=== PATIENT | male | born 1955 | race Caucasian/White ===

== ENCOUNTER → 2016-04-17 | Outpatient (CLI) | payer BC, OTHER ==
[~2016-04-17] VITALS: Ht 177.8 cm; Wt 102.1 kg
[~2016-04-17] MED LIST: ASPI1TAB PO; METO-346 PO; NS 1,000 ML IV SCH; PROPOFOL 200 MG/20 ML VIAL As Ordered ONE; SIMV40TA2 PO
--- NOTE | 2016-04-17 10:07 | ROOR ---
Patient Name: Sapna Mares Procedure Date: 04/17/2016 9:42 AM Date of : 1955 Age: 60 Room: [facility] Gender: Male Note Status: Finalized Procedure: Colonoscopy Indications: Screening for colorectal malignant neoplasm Providers: Forrest Sanders Jr, MD Referring MD: Martina ARMENDARIZ DO Requestem Provider: Medicines: Propofol per Anesthesia Complications: No immediate complications. Procedure: Pre-Anesthesia Assessment: - Prior to the procedure, a History and Physical was performed, and patient medications and allergies were reviewed. The patient is competent. The risks and benefits of the procedure and the sedation options and risks were discussed with the patient. All questions were answered and informed consent was obtained. Patient identification and proposed procedure were verified by the physician and the nurse in the pre-procedure area and in the procedure room. Mental Status Examination: alert and oriented. Airway Examination: normal oropharyngeal airway and neck mobility. Respiratory Examination: clear to auscultation. CV Examination: normal. ASA Grade Assessment: II - A patient with mild systemic disease. After reviewing the risks and benefits, the patient was deemed in satisfactory condition to undergo the procedure. The anesthesia plan was to use moderate sedation / analgesia (conscious sedation). Immediately prior to administration of medications, the patient was re-assessed for adequacy to receive sedatives. The heart rate, respiratory rate, oxygen saturations, blood pressure, adequacy of pulmonary ventilation, and response to care were monitored throughout the procedure. The physical status of the patient was re-assessed after the procedure. The Colonoscope was introduced through the anus and advanced to the cecum, identified by appendiceal orifice and ileocecal valve. The Colonoscope was introduced through the and advanced to. The patient tolerated the procedure well. The quality of the bowel preparation was adequate and good. Findings: The perianal and digital rectal examinations were normal. Pertinent negatives include normal sphincter tone, no palpable rectal lesions and no anal lesion or abnormality was detected. Multiple small and large-mouthed diverticula were found in the sigmoid colon. A medium polyp was found in the recto-sigmoid colon. The polyp was pedunculated. The polyp was removed with a hot snare. Resection and retrieval were complete. The descending colon, transverse colon, ascending colon, cecum, appendiceal orifice and ileocecal valve appeared normal. Impression: - Diverticulosis in the sigmoid colon. - One medium polyp at the recto-sigmoid colon, removed with a hot snare. Resected and retrieved. Recommendation: - Discharge patient to home (ambulatory). - Repeat colonoscopy in 3 years for surveillance. Forrest Sanders MD Forrest Sanders Jr, MD 04/17/2016 10:07:19 AM This report has been signed electronically. Number of Addenda: 0 Note Initiated On: 04/17/2016 9:42 AM Estimated Blood Loss: Estimated blood loss: none.
[2016-04-17 10:25] VITALS: BP 126/86
== END | disposition home or self-care (01) ==
LOC: M OPP 08:47
PROVIDERS: ATTEND Surgery
DX: Z12.11 Encounter for screening for malignant neoplasm of colon (principal); K57.30 Diverticulosis of large intestine without perforation or abscess without bleeding; D12.7 Benign neoplasm of rectosigmoid junction; I25.10 Atherosclerotic heart disease of native coronary artery without angina pectoris; E78.00 Pure hypercholesterolemia, unspecified; E66.9 Obesity, unspecified; Z95.5 Presence of coronary angioplasty implant and graft; F17.200 Nicotine dependence, unspecified, uncomplicated; F17.228 Nicotine dependence, chewing tobacco, with other nicotine-induced disorders; Z79.899 Other long term (current) drug therapy; Z79.82 Long term (current) use of aspirin

== ENCOUNTER → 2016-05-16 | Outpatient (CLI) | payer BC, OTHER ==
[~2016-05-16] MED LIST changes: +ISOVUE-370 76% 100ML VIAL (Q9967) As Ordered ONE; -NS 1,000 ML IV SCH; -PROPOFOL 200 MG/20 ML VIAL As Ordered ONE
--- NOTE | 2016-05-16 09:51 | REP ---
CT MAXILLOFACIAL WITH CONTRAST: 05/16/2016. Clinical history: Right-sided nasopharyngeal mass. Technique. The patient received a bolus of 75 ml of Isovue with scanning through the maxillofacial soft tissues with coronal and sagittal reconstructions. Findings: There is bilateral maxillary sinus mucosal thickening with mucous retention cysts suggested posteriorly and inferiorly on the left. Frontal sinuses were clear. Ethmoids show a few areas of mucosal thickening. Sphenoids are clear. The septum is deviated towards the left. Arising from the right nasal passage is a soft tissue mass abutting the right side of the posterior septum. It has a length of at least 4.3 cm. It has a transverse diameter in the nasopharyngeal airway of 2.2 cm and a maximum vertical diameter of 2.2 cm. Nasal cavity and nasopharyngeal airway were otherwise unremarkable. No bony destructive changes. The middle and inferior turbinates were intact bilaterally and unassociated with this mass. No other findings. Impression: 1. 4.3 x 2.2 x 2.2 cm mass arising from the right nasopharynx abutting the septum and extending into the nasopharyngeal airway. Its overall diameter increases in the empty airway in transverse dimension but the inferior aspect the airway was intact. Although it abuts the anterior margin of the adenoids, it does not appear to involve them or thicken them overall. 2. Chronic sinusitis involving the maxillary antrum on the left and in the right maxillary and ethmoid air cells. Signed by Binu Srinivasan MD 05/16/2016 10:55 A
--- NOTE | 2016-05-16 09:53 | REP ---
CT NECK WITH CONTRAST: 05/16/2016 CLINICAL HISTORY: Left upper neck mass. TECHNIQUE: The patient received bolus of 75 mL Isovue 370 and scanning through the neck with coronal and sagittal reconstructions. BB marker placed over the soft tissue neck mass on the left. FINDINGS: No prior study. In the soft tissues superficial left neck with the platysma and deep to it is an oval subcutaneous mass measuring 2.6 x 2.2 x [address] attenuation values in the mid teens suggesting fluid. This is likely a sebaceous cyst. There is no pathologic sized submandibular, submental, anterior or posterior cervical chain adenopathy. Anterior posterior strap muscles of the neck are unremarkable. The parotid and submandibular glands are without mass or focal lesion. There is a mass in the posterior right nasopharynx extending into the nasopharyngeal airway and abutting the adenoids. It arises from the right posterior nasal cavity. The adenoid pad shows no abnormal thickening. The nasopharyngeal airway below it is widely patent. The oropharynx, hypopharynx, epiglottis, valleculae and piriform sinuses are clear. The larynx and subglottic trachea are unremarkable. Supraclavicular region shows no mass. Thyroid lobes symmetric and normal. The lung apices are clear. There is cervical spondylosis throughout the neck but greatest at C5-6 and C6-7 with some central canal stenosis at C6-7. There is also foraminal encroachment at those levels of C5-6 and C6-7. IMPRESSION: 1. There is a subcutaneous soft tissue mass in the left neck abutting the platysma but arising from the skin likely a sebaceous cyst with CT attenuation values suggesting proteinaceous fluid. This does not show calcification or other mass-like characteristics. 2. The submandibular and parotid glands symmetric and normal and no pathologic adenopathy. 3. Nasopharyngeal mass on the right extending from the posterior nasal passage into the airway and abutting the adenoids. Please see the CT maxillofacial for further detail. Signed by Binu Srinivasan MD 05/16/2016 10:56 A
== END ==
LOC: M RAD 08:15
PROVIDERS: ATTEND Otolaryngology
DX: J32.0 Chronic maxillary sinusitis (principal); R22.1 Localized swelling, mass and lump, neck
CPT/HCPCS: 70487; 70491; Q9967

== ENCOUNTER → 2016-06-12 | Outpatient (CLI) | payer BC, OTHER ==
[~2016-06-12] MED LIST changes: -ISOVUE-370 76% 100ML VIAL (Q9967) As Ordered ONE
[2016-06-12 18:39] LABS: INR 0.94
[2016-06-12 19:02] LABS: ANION GAP 6 MEQ/L (8-16); BLOOD UREA NITROGEN 12 MG/DL (7-18); CALCIUM LEVEL 9.6 MG/DL (8.8-10.2); CARBON DIOXIDE LEVEL 32 MEQ/L (21-32); CHLORIDE LEVEL 102 MEQ/L (98-107); CREATININE FOR GFR 0.96 MG/DL (0.70-1.30); GLOMERULAR FILTRATION RATE > 60.0 (>49); GLUCOSE, FASTING 77 MG/DL (80-110); POTASSIUM SERUM 4.4 MEQ/L (3.5-5.1); SODIUM LEVEL 140 MEQ/L (136-145)
[2016-06-12 19:03] LABS: BASO % 0.7 % (0.0-1.0); EOS # 0.2 K/mm3 (0.0-0.50); LARGE UNSTAINED CELL # 0.3 K/mm3 (0.0-0.4); LARGE UNSTAINED CELL % 3.4 % (0.0-4.0); LYMPH # 2.2 K/mm3 (1.5-4.5); LYMPH % 25.2 % (24.0-44.0); MEAN CORPUSCULAR HEMOGLOBIN 31.9 pg (27.0-33.0); MEAN CORPUSCULAR HGB CONC 33.8 g/dl (32.0-36.5); MEAN CORPUSCULAR VOLUME 94.5 fl (80.0-96.0); MONO # 0.5 K/mm3 (0.0-0.8); MONO % 5.9 % (0.0-5.0); NEUTROPHILS # 4.9 K/mm3 (1.8-7.7); NEUTROPHILS % 61.9 % (36.0-66.0); PLATELET COUNT, AUTOMATED 246 k/mm3 (150-450); WHITE BLOOD COUNT 7.8 K/mm3 (4.0-10.0)
== END ==
LOC: M SMT 14:02
PROVIDERS: ATTEND Physician Assistant
DX: Z01.818 Encounter for other preprocedural examination (principal)

== ENCOUNTER → 2016-06-17 | Day surgery (SDC) | payer BC, OTHER ==
[~2016-06-17] VITALS: Ht 177.8 cm; Wt 99.8 kg
[~2016-06-17] MED LIST changes: +CEFUROXIME INJ 750 MG VIAL (J0697) As Ordered ONE; +EPINEPHrine 1MG/ML INJ 30ML MD-VIAL As Ordered ONE; +LIDOCAINE 2% INJ 100 MG/5 ML SDV (FOR ANES.) As Ordered ONE; +LIDOCAINE W/EPINEPHRINE 1% 20ML VIAL As Ordered ONE; +LR 1,000 ML IV SCH; +METHYLENE BLUE 0.5% (5MG/ML) 10 ML AMP (PROVAYBLUE)(Q9968 PER 1MG) As Ordered ONE; +METOCLOPRAMIDE INJ 10MG/2ML VIAL (J2765) IV PRN; +MIDAZOLAM INJ 2 MG/2 ML VIAL (J2250) As Ordered ONE; +ONDANSETRON 4MG/2ML VIAL (J2405) As Ordered ONE; +ONDANSETRON 4MG/2ML VIAL (J2405) IV PRN; +PROPOFOL 200 MG/20 ML VIAL As Ordered ONE; +REMIFENTANIL 1MG 3ML VIAL As Ordered ONE; +ROCURONIUM BROMIDE 50 MG/5 ML VIAL As Ordered ONE; +SEVOFLURANE INHAL SOLN 250 ML BTL As Ordered ONE; +SODIUM CHLORIDE 0.9% NASAL GEL 15MG (AYR) As Ordered ONE; +dexameTHASONE 4 MG/ML 1ML VIAL (J1100) IV ONE; +ePHEDrine SULFATE 25 MG/5 ML(5MG/ML) SYRINGE As Ordered ONE; +fentaNYL 100 MCG/2 ML INJECTION (J3010) IV PRN; +fentaNYL 250 MCG/5 ML INJECTION (J3010) As Ordered ONE
[2016-06-17] MEDS: POLYSPORIN TOPICAL OINTMENT 15GM As Ordered ONE ×2 (08:09→09:14)
[2016-06-17] MEDS: PERCOCET 5MG/325MG TAB PO PRN ×2 (12:18→12:47)
[2016-06-17 14:08] VITALS: BP 169/97
--- NOTE | 2016-06-17 18:23 | RO ---
DATE OF OPERATION: 06/17/2016 PREOPERATIVE DIAGNOSES: 1. Left upper neck mass. 2. Right posterior nasal cavity mass. 3. Chronic maxillary sinusitis. 4. Chronic ethmoid sinusitis. 5. Deviated nasal septum. POSTOPERATIVE DIAGNOSES: 1. Left upper neck mass. 2. Right posterior nasal cavity mass. 3. Chronic maxillary sinusitis. 4. Chronic ethmoid sinusitis. 5. Deviated nasal septum. PROCEDURES PERFORMED: 1. Excision of the left upper neck mass. 2. Excision of the right posterior nasal mass emanating from the right posterior nasal septum. 3. Bilateral endoscopic maxillary antrostomy. 4. Bilateral anterior and posterior ethmoidectomy. 5. Stereotactic surgery using a Brainlab. 6. Septoplasty. 7. Implantation of bilateral Propel stent. SURGEON: Dr. Fidencio Rojas G[employer] SERVICE AGENT: ANESTHESIA: General without use of paralytic. CLINICAL PREAMBLE: This 60-year-old man presented to the office with a slowly enlarging left upper neck mass. In addition, he complained of nasal congestion. Physical examination revealed a 3 cm left upper neck mass, as well as a right posterior nasal mass. CT scan confirmed the presence of the left neck mass, and the right chronic maxillary and chronic ethmoid sinusitis were also noted, along with the deviated nasal septum to the left side. Management options, including surgery, have been discussed. The patient understood and consented to the procedure. DESCRIPTION OF PROCEDURE: Operating room (OR) narration: The patient was identified in preoperative holding and had the left neck and the right nostril marked. He was brought to the operating room in stable condition. In supine position on the operating table, the patient received general anesthesia, followed by orotracheal intubation without incident. The patient was prepped and draped in the usual fashion for the procedure. No further paralytic agent was used throughout the remainder of the case. The left neck was then prepped and draped in the usual fashion for the procedure. A curvilinear incision was outlined over the left upper neck mass. A punctum was noted and was marked to be included for excision. After infiltration of the overlying skin of the mass, an incision was made down through the skin. The capsule of the mass was identified, and dissection was carried out around the capsules. A cheesy material was noted in the mass lesion. The diameter of the mass was approximately 3 cm in size. Hemostasis was achieved. There was no breach of the platysma muscle throughout the entire dissection. The incision was closed using 3-0 Vicryl for the deep layer and Dermabond for the final skin closure. Attention was turned to performing the excision of the right nasal mass and sinus surgery. The patient was then prepped and draped in the usual fashion for the procedure. Both eyes were lubricated and protected using Tegaderm. The headband was attached. Good surface matching was achieved with the Circular system. Both sides of the nasal cavity were packed using pledgets soaked in 1:100,000 epinephrine. After a waiting period, the pledgets were removed using 0-degree nasoendoscope. The right nasal cavity was inspected. A large soft tissue mass was noted in the posterior right nasal cavity extending into the nasopharynx. The stalk of the mass was noted to be pedunculated from the posterior surface of the right nasal septum. The stalk was infiltrated with 1% lidocaine with 1:100,000 epinephrine. The stalk was then resected using the sickle knife. The entire mass successfully excised en bloc. It measured approximately 4.5 cm in diameter. This was sent for frozen section. It was reported to be of polypoid mass with schneiderian mucosal features with no evidence of malignancy. Decision was continued with the sinus surgery at this time. The left nasal septum was found to be deviated with a significant septal spur abutting against the left inferior nasal turbinate. The deviated portion of the nasal septum was infiltrated with 1% lidocaine with 1:100,000 epinephrine. The mucoperichondrial and mucoperiosteal flap was developed over the deviated portion of the nasal septum to allow resection of the deviated cartilage and the septal spur inferiorly. This afforded much improved surgical access to the left osteomeatal complex area. The left middle nasal turbinate was injected anteriorly. The uncinate process was identified and injected with 1% lidocaine with 1:100,000 epinephrine. The left maxillary antrum was identified using the ball tip probe. Maxillary antrostomy was then performed using the side-biting forceps. The left ethmoidalis bulla was identified and resected. The diseased anterior ethmoid air cells were then taken down. The basal lamella was penetrated. The diseased posterior ethmoid air cells were also taken down, as well. The same procedure was then carried out to the right-sided nasal cavity, as well. Right maxillary antrostomy was performed. The right ethmoidalis bulla was taken down. The anterior ethmoid air cells with polypoid degeneration were resected. The right basal lamella was penetrated, and the diseased posterior ethmoid air cells were resected, as well. The hemostasis achieved by placing cottonoid pledgets soaked in 1:100,000 epinephrine into both nasal cavities. The Propel stent was inserted into the osteomeatal complex area to allow medialization of the middle nasal turbinate. At the end of the procedure, sponge and needle counts were correct. Estimated blood loss was approximately 30 mL. No complication was encountered. General anesthesia was reversed, and the patient was extubated and brought to the recovery room in stable condition. In the recovery area, the patient exhibited no evidence of periorbital ecchymosis. The eyes exhibited full and symmetrical extraocular motions. Pupils were equal and reactive to light.
== END | disposition home or self-care (01) ==
LOC: M SDC 07:11
PROVIDERS: ATTEND Otolaryngology
DX: R22.1 Localized swelling, mass and lump, neck (principal); L72.3 Sebaceous cyst; J33.0 Polyp of nasal cavity; J32.0 Chronic maxillary sinusitis; J32.2 Chronic ethmoidal sinusitis; J34.2 Deviated nasal septum; I25.10 Atherosclerotic heart disease of native coronary artery without angina pectoris; E78.00 Pure hypercholesterolemia, unspecified; E66.9 Obesity, unspecified; Z87.891 Personal history of nicotine dependence; Z98.61 Coronary angioplasty status; Z79.82 Long term (current) use of aspirin; Z79.899 Other long term (current) drug therapy
CPT/HCPCS: 11423; 30520; 31237; 31255; 31267; 88300; 88305; C2625; J0697; J1100; J2250; J2405; J3010; Q9968

== ENCOUNTER 2022-08-21 06:51 | Day surgery (SDC) | payer MEDICARE, BC, OTHER ==
[~2022-08-21] VITALS: Ht 177.8 cm; Wt 89.2 kg
[~2022-08-21 06:51] MED LIST changes: -ASPI1TAB PO; +ASPI81TA26 PO; +ATOR40TA75 PO; -CEFUROXIME INJ 750 MG VIAL (J0697) As Ordered ONE; -EPINEPHrine 1MG/ML INJ 30ML MD-VIAL As Ordered ONE; -LIDOCAINE 2% INJ 100 MG/5 ML SDV (FOR ANES.) As Ordered ONE; -LIDOCAINE W/EPINEPHRINE 1% 20ML VIAL As Ordered ONE; -LR 1,000 ML IV SCH; -METHYLENE BLUE 0.5% (5MG/ML) 10 ML AMP (PROVAYBLUE)(Q9968 PER 1MG) As Ordered ONE; +METO1TAB87 PO; -METOCLOPRAMIDE INJ 10MG/2ML VIAL (J2765) IV PRN; -MIDAZOLAM INJ 2 MG/2 ML VIAL (J2250) As Ordered ONE; +NS 1,000 ML IV ONE; -ONDANSETRON 4MG/2ML VIAL (J2405) As Ordered ONE; -ONDANSETRON 4MG/2ML VIAL (J2405) IV PRN; -PROPOFOL 200 MG/20 ML VIAL As Ordered ONE; -REMIFENTANIL 1MG 3ML VIAL As Ordered ONE; -ROCURONIUM BROMIDE 50 MG/5 ML VIAL As Ordered ONE; -SEVOFLURANE INHAL SOLN 250 ML BTL As Ordered ONE; -SIMV40TA2 PO; +SIMV40TA20 PO; -SODIUM CHLORIDE 0.9% NASAL GEL 15MG (AYR) As Ordered ONE; -dexameTHASONE 4 MG/ML 1ML VIAL (J1100) IV ONE; -ePHEDrine SULFATE 25 MG/5 ML(5MG/ML) SYRINGE As Ordered ONE; -fentaNYL 100 MCG/2 ML INJECTION (J3010) IV PRN; -fentaNYL 250 MCG/5 ML INJECTION (J3010) As Ordered ONE
[2022-08-21] MEDS ORDERED: propofoL 500 MG/50 ML VIAL As Ordered ONE (07:34)
[2022-08-21] MEDS ORDERED: LIDOCAINE 2% 100MG/5ML SDV (FOR ANES.) As Ordered ONE (07:34)
[2022-08-21 08:05] VITALS: BP 113/59; O2SAT 96
== END 2022-08-21 08:13 | disposition home or self-care (01) ==
LOC: M OPP 06:51
PROVIDERS: ATTEND Surgery
DX: Z12.11 Encounter for screening for malignant neoplasm of colon (principal); Z86.010 Personal history of colon polyps; K57.30 Diverticulosis of large intestine without perforation or abscess without bleeding; Z87.891 Personal history of nicotine dependence; Z79.02 Long term (current) use of antithrombotics/antiplatelets; Z79.82 Long term (current) use of aspirin; Z79.891 Long term (current) use of opiate analgesic